=== PATIENT | male | born 1955 | race African-American/Black ===

== ENCOUNTER 2016-08-21 09:24 | Emergency (ER) | payer OTHER ==
[~2016-08-21] VITALS: Ht 182.9 cm; Wt 120.2 kg
[~2016-08-21 09:24] MED LIST: NORCO 5-325 TA1 EACH ORAL; VALIUM10 MG ORAL
[2016-08-21] MEDS ORDERED: METFORMIN HCL500 M1 ORAL (09:38)
[2016-08-21] MEDS ORDERED: ASPIR-LOW81 MG ORAL (09:38)
[2016-08-21 10:02] VITALS: BP 150/102
[2016-08-21] MEDS ORDERED: IBUPROFEN600 MG ORAL (10:04)
[2016-08-21] MEDS ORDERED: KEFLEX500 MG ORAL (10:04)
--- NOTE | 2016-08-21 10:21 | Emergency Room Report ---
History of Present Illness General Chief Complaint: Upper Extremity Injury Source: Patient Present Illness HPI Patient presents with complaints of discomfort and swelling to the left index finger He has noticed this over the past several days Denies any recent trauma Pain is 3/10 worse with touch Denies any fevers or chills Denies any other wrist or elbow pain Allergies: Coded Allergies: No Known Allergies (Unverified , 09/16/13) Patient History Past Medical History: see triage record Pertinent Family History: none Reviewed Nursing Documentation: PMH: Agreed, PSxH: Agreed Nursing Documentation-PMH Past Medical History: No History, Except For Hx Diabetes: Yes Review of Systems All Other Systems: negative except mentioned in HPI Physical Exam Vital Signs Date Time Temp Pulse Resp B/P Pulse Ox O2 Delivery O2 Flow Rate FiO2 08/21/16 09:32 97.3 88 18 150/102 98 Room Air Sp02 EP Interpretation: reviewed, normal General Appearance: well appearing, no apparent distress Head: normocephalic, atraumatic Eyes: bilateral eye EOMI, bilateral eye PERRL ENT: normal ENT inspection, normal pharynx Neck: full range of motion, supple Musculoskeletal: other - Small early paronychia distal medial part of the index finger on the left side, no obvious flaring of erythema Skin: other - As noted above Lymphatic: no adenopathy Medical Decision Making Diagnostic Impression: Primary Impression: paronychia ER Course The area in question at this time appears to be fairly small I do not feel that incision would be appropriate given the findings patient will have warm soaking oral antibiotics And return with any changes Last Vital Signs Date Time Temp Pulse Resp B/P Pulse Ox O2 Delivery O2 Flow Rate FiO2 08/21/16 10:02 97.3 18 150/102 98 Room Air 08/21/16 09:32 88 Status: unchanged Disposition: HOME, SELF-CARE Condition: Stable Scripts Ibuprofen* (MOTRIN*) 600 Mg Tablet 600 MG ORAL Q8H Y for For Pain, #20 TAB 0 Refills Prov: DAVID HARDEN D.O. 08/21/16 Cephalexin* (KEFLEX*) 500 Mg Capsule 500 MG ORAL Q6H, #28 CAP 0 Refills Prov: DAVID HARDEN D.O. 08/21/16 Referrals: NOT CHOSEN IPA/MD,REFERRING (PCP) Patient Instructions: Paronychia, [id number] Additional Instructions: The area in question does not appear to require any incision at this time, we will attempt oral antibiotic coverage, but the area is not improving in the next 3-4 days please return as at that point incision might be required DAVID HARDEN D.O. Aug 21, 2016 10:21
[2016-08-21 10:27] VITALS: BP 136/100
[2016-08-21 10:28] VITALS: BP 136/100
== END 2016-08-21 10:15 | disposition home or self-care (01) ==
LOC: EMR 09:59
DX: L03.012 Cellulitis of left finger (principal); E11.9 Type 2 diabetes mellitus without complications
CPT/HCPCS: 99284

== ENCOUNTER 2017-08-15 10:41 | Emergency (ER) | payer OTHER ==
[~2017-08-15] VITALS: Ht 182.9 cm; Wt 127.0 kg
[~2017-08-15 10:41] MED LIST changes: +ASPIR-LOW81 MG ORAL; +IBUPROFEN600 MG ORAL; +KEFLEX500 MG ORAL; +METFORMIN HCL500 M1 ORAL
[2017-08-15 10:49] VITALS: BP 147/101
[2017-08-15 11:58] LABS: APPEARANCE,URINE CLEAR; BILIRUBIN, URINE NEGATIVE (NEGATIVE); COLOR,URINE PALE YELLOW; GLUCOSE, URINE (UA) NEGATIVE (NEGATIVE); KETONES,URINE NEGATIVE (NEGATIVE); LEUKOCYTE ESTERASE ,URINE NEGATIVE (NEGATIVE); NITRITE,URINE NEGATIVE (NEGATIVE); PH,URINE 6.5 (4.5-8.0); PROTEIN,URINE NEGATIVE (NEGATIVE); UROBILINOGEN,URINE NORMAL MG/DL (0.0-1.0)
[2017-08-15 12:02] LABS: HEMATOCRIT 44.7 % (42.0-52.0); HEMOGLOBIN 14.2 G/DL (14.2-18.0); MEAN CORPUSCULAR VOLUME 88 FL (80-99); PLATELET COUNT 194 K/UL (150-450); RED BLOOD COUNT 5.07 M/UL (4.70-6.10); WHITE BLOOD COUNT 4.8 K/UL (4.8-10.8)
[2017-08-15 12:11] LABS: ANION GAP 11 mmol/L (5-15); BLOOD UREA NITROGEN 10 mg/dL (7-18); CALCIUM 8.8 MG/DL (8.5-10.1); CARBON DIOXIDE 23 MMOL/L (21-32); CHLORIDE 104 MMOL/L (98-107); CREATININE 1.1 MG/DL (0.55-1.30); POTASSIUM 4.2 MMOL/L (3.5-5.1); SODIUM 138 MMOL/L (136-145)
--- NOTE | 2017-08-15 12:27 | Diagnostic Imaging Report ---
Indication: Pain Findings: 3 views of the left shoulder were obtained. Alignment of the left shoulder is normal. No obvious acute fracture is identified. Soft tissues are unremarkable. Views are suboptimal technically. Impression: No acute injury
[2017-08-15 12:28] LABS: ALANINE AMINOTRANSFERASE 30 U/L (12-78); ALKALINE PHOSPHATASE 44 U/L (46-116); ASPARTATE AMINO TRANSFERASE 28 U/L (15-37); BILIRUBIN,TOTAL 0.4 MG/DL (0.2-1.0); CKMB 7.7 NG/ML (0.0-3.6); CREATINE KINASE 539 U/L (26-308)
--- NOTE | 2017-08-15 12:28 | Diagnostic Imaging Report ---
Indication: Dyspnea Comparison: None A single view chest radiograph was obtained. Findings: Cardiomediastinal appearance is within normal limits for age. The aorta is mildly ectatic. Pulmonary vascularity is appropriate. The diaphragmatic contour is smooth and costophrenic angles are sharp. No pleural effusions are identified. The bones are unremarkable. Impression: No acute findings
[2017-08-15 13:00] VITALS: BP 119/83
[2017-08-15] MEDS ORDERED: IBUPROFEN600 MG ORAL (13:25)
[2017-08-15 13:36] VITALS: BP 119/83
--- NOTE | 2017-08-15 13:43 | Emergency Room Report ---
History of Present Illness General Chief Complaint: Pain Source: Patient Present Illness HPI Patient states that he has had left shoulder pain for the past 3 days. He states the pain is primarily with movement. He states that if he tries to lift his left shoulder he will have pain deep in his shoulder. He states that the pain was radiating to his left chest. He denies recent illness. He denies cough or congestion. He denies shortness of breath. He does not have exertional symptoms. He denies abdominal pain. He denies nausea or vomiting. He denies sweating. He has no other complaints. Allergies: Coded Allergies: No Known Allergies (Unverified , 09/16/13) Patient History Past Medical History: see triage record, DM Social History: Reports: drug use, Denies: smoking, alcohol use Reviewed Nursing Documentation: PMH: Agreed, PSxH: Agreed Nursing Documentation-PMH Hx Diabetes: Yes Review of Systems All Other Systems: negative except mentioned in HPI Physical Exam Vital Signs Date Time Temp Pulse Resp B/P (MAP) Pulse Ox O2 Delivery O2 Flow Rate FiO2 08/15/17 10:48 97.7 70 20 147/101 98 Room Air Sp02 EP Interpretation: reviewed, normal General Appearance: no apparent distress, alert, GCS 15, non-toxic Head: normocephalic, atraumatic Eyes: bilateral eye normal inspection, bilateral eye PERRL ENT: hearing grossly normal, normal pharynx, no angioedema, normal voice Neck: full range of motion, supple/symm/no masses Respiratory: chest non-tender, lungs clear, normal breath sounds, speaking full sentences Cardiovascular #1: regular rate, rhythm, no edema Gastrointestinal: normal bowel sounds, non tender, soft, non-distended, no guarding, no rebound Rectal: deferred Musculoskeletal: back normal, gait/station normal, normal range of motion, other - Pain with lateral elevation of the left shoulder in the region of the rotator cuff. Neurologic: alert, oriented x3, responsive, motor strength/tone normal, sensory intact, speech normal Psychiatric: judgement/insight normal, memory normal, mood/affect normal, no suicidal/homicidal ideation Skin: normal color, no rash, warm/dry, well hydrated Medical Decision Making Diagnostic Impression: Primary Impression: Shoulder pain, acute Qualified Codes: M25.512 - Pain in left shoulder ER Course This patient has a clinical presentation consistent with rotator cuff impingement. X-ray of the shoulder showed no acute findings. Chest x-ray showed no acute findings. The patient has pain with range of motion and has tenderness to palpation in the region of the rotator cuff. There is no evidence of compartment syndrome. There is no neurologic deficit. The patient was instructed on supportive home measures. Given the length of symptoms, this workup is very reassuring with negative cardiac enzymes, normal EKG, and normal chest x-ray. The patient is low risk and his symptoms are atypical for acute coronary syndrome. I have very low suspicion for PE, aortic dissection or pneumothorax based on history/physical, laboratory and radiologic workup. The patient was given close return precautions and followup instructions. No emergency medical condition was identified. Laboratory Tests Test 08/15/17 11:50 White Blood Count 4.8 K/UL (4.8-10.8) Red Blood Count 5.07 M/UL (4.70-6.10) Hemoglobin 14.2 G/DL (14.2-18.0) Hematocrit 44.7 % (42.0-52.0) Mean Corpuscular Volume 88 FL (80-99) Mean Corpuscular Hemoglobin 28.0 PG (27.0-31.0) Mean Corpuscular Hemoglobin Concent 31.8 G/DL (32.0-36.0) L Red Cell Distribution Width 14.0 % (11.6-14.8) Platelet Count 194 K/UL (150-450) Mean Platelet Volume 9.6 FL (6.5-10.1) Neutrophils (%) (Auto) % (45.0-75.0) Lymphocytes (%) (Auto) % (20.0-45.0) Monocytes (%) (Auto) % (1.0-10.0) Eosinophils (%) (Auto) % (0.0-3.0) Basophils (%) (Auto) % (0.0-2.0) Differential Total Cells Counted 100 Neutrophils % (Manual) 30 % (45-75) L Lymphocytes % (Manual) 58 % (20-45) H Monocytes % (Manual) 12 % (1-10) H Eosinophils % (Manual) 0 % (0-3) Basophils % (Manual) 0 % (0-2) Band Neutrophils 0 % (0-8) Platelet Estimate Adequate Platelet Morphology Normal Red Blood Cell Morphology Normal Urine Color Pale yellow Urine Appearance Clear Urine pH 6.5 (4.5-8.0) Urine Specific [place] 1.010 (1.005-1.035) Urine Protein Negative (NEGATIVE) Urine Glucose (UA) Negative (NEGATIVE) Urine Ketones Negative (NEGATIVE) Urine Occult Blood Negative (NEGATIVE) Urine Nitrite Negative (NEGATIVE) Urine Bilirubin Negative (NEGATIVE) Urine Urobilinogen Normal MG/DL (0.0-1.0) Urine Leukocyte Esterase Negative (NEGATIVE) Sodium Level 138 MMOL/L (136-145) Potassium Level 4.2 MMOL/L (3.5-5.1) Chloride Level 104 MMOL/L (98-107) Carbon Dioxide Level 23 MMOL/L (21-32) Anion Gap 11 mmol/L (5-15) Blood Urea Nitrogen 10 mg/dL (7-18) Creatinine 1.1 MG/DL (0.55-1.30) Estimate Glomerular Filtration Rate > 60 mL/min (>60) Glucose Level 86 MG/DL (74-106) Calcium Level 8.8 MG/DL (8.5-10.1) Total Bilirubin 0.4 MG/DL (0.2-1.0) Aspartate Amino Transferase (AST) 28 U/L (15-37) Alanine Aminotransferase (ALT) 30 U/L (12-78) Alkaline Phosphatase 44 U/L (46-116) L Total Creatine Kinase 539 U/L (26-308) H Creatine Kinase MB 7.7 NG/ML (0.0-3.6) H Creatine Kinase MB Relative Index 1.4 Troponin I 0.005 ng/mL (0.000-0.056) Total Protein 8.2 G/DL (6.4-8.2) Albumin 4.0 G/DL (3.4-5.0) Globulin 4.2 g/dL Albumin/Globulin Ratio 1.0 (1.0-2.7) Urine Opiates Screen Negative (NEGATIVE) Urine Barbiturates Screen Negative (NEGATIVE) Phencyclidine (PCP) Screen Negative (NEGATIVE) Urine Amphetamines Screen Negative (NEGATIVE) Urine Benzodiazepines Screen Negative (NEGATIVE) Urine Cocaine Screen Negative (NEGATIVE) Urine Marijuana (THC) Screen Positive (NEGATIVE) H EKG Diagnostic Results Rate: bradycardiac Rhythm: other - S.bradycardia ST Segments: no acute changes Rhythm Strip Diag. Results EP Interpretation: yes Rate: 50's Rhythm: no PVC's, no ectopy, other - S.bradycardia Chest X-Ray Diagnostic Results Chest X-Ray Diagnostic Results : Chest X-Ray Ordered: Yes # of Views/Limited/Complete: 1 View Indication: Chest Pain EP Interpretation: No Interpretation: no consolidation, no effusion, no pneumothorax, no acute cardiopulmonary disease Impression: No acute disease Electronically Signed by: Kieran Last Vital Signs Date Time Temp Pulse Resp B/P (MAP) Pulse Ox O2 Delivery O2 Flow Rate FiO2 08/15/17 13:00 58 13 119/83 98 Room Air 08/15/17 10:49 97.7 Disposition: HOME, SELF-CARE Condition: Stable Scripts Ibuprofen* (MOTRIN*) 600 Mg Tablet 600 MG ORAL THREE TIMES A DAY, #30 TAB 0 Refills Prov: Kassi Shukla 08/15/17 Patient Instructions: Shoulder Pain, [id number] Additional Instructions: Take medications as directed. Follow up with a Primary Care Provider in 3-5 days, even if your symptoms have resolved. --Please review list of primary care clinics, if you do not already have a primary care provider Followup with your PMD because of her symptoms continue he may require further evaluation such as MRI. Return sooner to ED if new symptoms occur, or current symptoms become worse. - Please note that this Emergency Department Report was dictated using [employer] plaste[employer] technology software, occasionally this can lead to erroneous entry secondary to interpretation by the dictation equipment. AFSHAN FIERRO D.O. Aug 15, 2017 13:43
--- NOTE | 2017-08-16 13:25 | Cardiology Report ---
APPROVED REPORT EKG Measurement Heart [id number] Sinus bradycardia with sinus arrhythmia Otherwise normal ECG
== END 2017-08-15 13:36 | disposition home or self-care (01) ==
LOC: EMR 11:25
DX: M25.512 Pain in left shoulder (principal); R06.00 Dyspnea, unspecified; E11.9 Type 2 diabetes mellitus without complications
CPT/HCPCS: 36415; 71045; 80053; 80307; 81003; 82550; 82553; 84484; 85007; 85025; 93005; 99284